=== PATIENT | male | born 1995 | race Caucasian/White ===

== ENCOUNTER 2019-03-08 20:54 | Emergency (ER) | payer BC ==
--- NOTE | 2019-03-08 21:15 | EDM.PDOC ---
ED HPI GENERAL MEDICAL PROBLEM - General Chief Complaint: Back Pain or Injury Stated Complaint: BACK PAIN Time Seen by Provider: 03/08/19 21:15 Source of Information: Reports: Patient - History of Present Illness INITIAL COMMENTS - FREE TEXT/NARRATIVE: HISTORY AND PHYSICAL: History of present illness: [Patient with 4 days of back pain increasing in severity, it began at work with a tight feeling in his low back the following day he was at the exercise gym to lift weights he states that he picked a rope up off of the floor have increased pain with bending and the left shortly after as he was unable to actually participate in the weightlifting Lying on his couch pain 5 out of 10 nonradiating worsened by movement better at rest No footdrop saddle anesthesia bowel or urine symptoms ] Review of systems: As per history of present illness and below otherwise all systems reviewed and negative. Past medical history: As per history of present illness and as reviewed below otherwise noncontributory. Surgical history: As per history of present illness and as reviewed below otherwise noncontributory. Social history: No reported history of drug or alcohol abuse. Family history: As per history of present illness and as reviewed below otherwise noncontributory. Physical exam: HEENT: Atraumatic, normocephalic, pupils reactive, negative for conjunctival pallor or scleral icterus, mucous membranes moist, throat clear, neck supple, nontender, trachea midline. Lungs: Clear to auscultation, breath sounds equal bilaterally, chest nontender. Heart: S1S2, regular, negative for clicks, rubs, or JVD. Abdomen: Soft, nondistended, nontender. Negative for masses or hepatosplenomegaly. Negative for costovertebral tenderness. Pelvis: Stable nontender. Genitourinary: Deferred. Rectal: Deferred. Extremities: Atraumatic, negative for cords or calf pain. Neurovascular unremarkable. Neuro: Awake, alert, oriented. Cranial nerves II through XII unremarkable. Cerebellum unremarkable. Motor and sensory unremarkable throughout. Exam nonfocal. Diagnostics: [Lumbar spine ] Therapeutics: [Toradol 60 IM ] Cataflam Flexeril ice/heat whichever gains most benefit Impression: []lum bar paraspinous muscle spasm Definitive disposition and diagnosis as appropriate pending reevaluation and review of above. low back Pain Score (Numeric/FACES): 5 - Related Data Allergies Allergy/AdvReac Type Severity Reaction Status Date / Time amoxicillin [From Augmentin] Allergy Airway Verified 03/08/19 21:22 Tightness clavulanic acid Allergy Airway Verified 03/08/19 21:22 [From Augmentin] Tightness Home Meds: Home Meds . [No Known Home Meds] 03/08/19 [History] Past Medical History - Past Surgical History HEENT Surgical History: Reports: Oral Surgery, Tonsillectomy Other HEENT Surgeries/Procedures: Marquez teeth removed- 2014 GI Surgical History: Reports: Appendectomy ED ROS GENERAL - Review of Systems Review Of Systems: See Below ED EXAM, GENERAL - Physical Exam Exam: See Below Course - Vital Signs Last Recorded V/S: Last Vital Signs Temp 97 F 03/08/19 21:10 Pulse 85 03/08/19 21:10 Resp 18 03/08/19 21:10 BP 129/78 03/08/19 21:10 Pulse Ox 96 03/08/19 21:10 - Orders/Labs/Meds Orders: Active Orders 24 hr Category Date Time Status Lumbar Spine 2 or 3V [CR] Stat Exams 03/08/19 21:18 Taken Meds: Medications Discontinued Medications Generic Name Dose Route Start Last Admin Trade Name Freq PRN Reason Stop Dose Admin Ketorolac Tromethamine 60 mg 03/08/19 21:20 03/08/19 21:33 Toradol IM 03/08/19 21:21 60 mg ONETIME ONE Administration Departure - Departure Time of Disposition: 21:59 Disposition: Home, Self-Care 01 Condition: Good Clinical Impression: Lumbar paraspinal muscle spasm - Discharge Information Referrals: PCP,None [Primary Care Provider] - Forms: ED Department Discharge Additional Instructions: Medication as prescribed Ice or heat 20 minute intervals 3 times daily each ever gains most benefit Return if symptoms persist or worsen Follow-up with primary care in 2 weeks sooner as needed [facility] - Primary [facility] [address] [place] [id number] The following information is given to patients seen in the emergency department who are being discharged to home. This information is to outline your options for follow-up care. We provide all patients seen in our emergency department with a follow-up referral. The need for follow-up, as well as the timing and circumstances, are variable depending upon the specifics of your emergency department visit. If you don't have a primary care physician on staff, we will provide you with a referral. We always advise you to contact your personal physician following an emergency department visit to inform them of the circumstance of the visit and for follow-up with them and/or the need for any referrals to a consulting specialist. The emergency department will also refer you to a specialist when appropriate. This referral assures that you have the opportunity for follow-up care with a specialist. All of these measure are taken in an effort to provide you with optimal care, which includes your follow-up. Under all circumstances we always encourage you to contact your private physician who remains a resource for coordinating your care. When calling for follow-up care, please make the office aware that this follow-up is from your recent emergency room visit. If for any reason you are refused follow-up, please contact the [facility] emergency department at and asked to speak to the emergency department charge nurse. - My Orders Last 24 Hours: My Active Orders 03/08/19 21:18 Lumbar Spine 2 or 3V [CR] Stat - Assessment/Plan Last 24 Hours: My Active Orders 03/08/19 21:18 Lumbar Spine 2 or 3V [CR] Stat
[2019-03-08] MEDS ORDERED: Ketorolac 60 MG/2 ML SDV IM ONE (21:20)
--- NOTE | 2019-03-08 22:35 | CR ---
INDICATION: Pain. No injury. COMPARISON: None. FINDINGS/IMPRESSION: Lumbar spine, 3 views. There is mild lumbar levoscoliosis and straightening of lumbar lordosis, possibly due to muscle spasm. No fractures are identified. No destructive lesions of bone are noted. No significant disc space narrowing is seen. Paraspinous soft tissues are within normal limits. Dictated by Mike Sharp MD @ 03/08/2019 10:35:05 PM Dictated by: Mike Sharp MD @ 03/08/2019 22:35:24 (Electronically Signed)
== END 2019-03-08 22:10 | disposition home or self-care (01) ==
LOC: MW.ED 20:54
DX: M62.830 Muscle spasm of back (principal); Z88.1 Allergy status to other antibiotic agents
CPT/HCPCS: 72100; 96372; 99283; J1885

== ENCOUNTER 2019-04-07 20:41 | Emergency (ER) | payer OTHER, BC ==
[2019-04-07] MEDS ORDERED: Ketorolac 60 MG/2 ML SDV IM ONE (21:01)
--- NOTE | 2019-04-07 21:06 | EDM.PDOC ---
ED HPI GENERAL MEDICAL PROBLEM - General Chief Complaint: Back Pain or Injury Stated Complaint: BACK INJURY Time Seen by Provider: 04/07/19 20:51 - History of Present Illness INITIAL COMMENTS - FREE TEXT/NARRATIVE: HISTORY AND PHYSICAL: History of present illness: The patient is a healthy 23-year-old male who presents with complaints of right upper lumbar back pain that started while at work today. The patient was seen here exactly one month ago on March 08 for lower back pain after having 4 or 5 days of pain and doing a lot of lifting at work. The patient had lumbar spine x-rays which I have reviewed which revealed no acute abnormalities except straightening of the lordosis of the lumbar spine secondary to spasm. He received Toradol and Flexeril and says that it improved gradually. He says that today he was doing similar activity such as lifting and he felt this acute pain which is worse with movements. He has no abdominal pain no shortness of breath no chest pain and no neurosensory changes or weakness in his extremities. He's had no bowel or bladder disturbances and he has tried [id number] Excedrin which is all they had at the work site. He says this is similar pain to what he had a month ago but it is just slightly higher. It is more on the right side. He 's had no hematuria dysuria or frequency Review of systems: As per history of present illness and below otherwise all systems reviewed and negative. Past medical history: As per history of present illness and as reviewed below otherwise noncontributory. Surgical history: As per history of present illness and as reviewed below otherwise noncontributory. Social history: No reported history of drug or alcohol abuse. Family history: As per history of present illness and as reviewed below otherwise noncontributory. Physical exam: General: Well-developed well-nourished man who is nontoxic and vital signs are noted by me. He looks uncomfortable with movements and prefers to sit very still. He did ambulate into the ED. HEENT: Atraumatic, normocephalic, negative for conjunctival pallor or scleral icterus, mucous membranes moist, throat clear, neck supple, nontender, trachea midline. Lungs: Clear to auscultation, breath sounds equal bilaterally, chest nontender. Heart: S1S2, regular in rhythm no overt murmurs Abdomen: Soft, nondistended, nontender. Negative for costovertebral tenderness. Pelvis: Stable nontender. Genitourinary: Deferred. Rectal: Deferred. Extremities: Atraumatic, negative for cords or calf pain. Neurovascular unremarkable. Full range of motion without deficits Neuro: Awake, alert, oriented. Cranial nerves II through XII unremarkable. Cerebellum unremarkable. Motor and sensory unremarkable throughout. Exam nonfocal. Dorsi and plantar flexion is intact 5/5 bilaterally inclusive of the great toe. Inversion and eversion of the feet is intact. Patellar reflexes are + 2 over 4 bilaterally Back: There are no midline step-offs in his defects of the thoracic lumbar spine no posterior rib or posterior pelvis tenderness. On palpation of the right paraspinal musculature at the upper lumbar area there is point reproducible discomfort on my exam. Diagnostics: Patient had lumbar spine x-rays 1 month ago which I reviewed Therapeutics: Toradol Norflex Impression: Acute back pain/muscle strain Definitive disposition and diagnosis as appropriate pending reevaluation and review of above. Middle Back Pain Score (Numeric/FACES): 4 - Related Data Allergies Allergy/AdvReac Type Severity Reaction Status Date / Time amoxicillin [From Augmentin] Allergy Airway Verified 04/07/19 20:54 Tightness clavulanic acid Allergy Airway Verified 04/07/19 20:54 [From Augmentin] Tightness Home Meds: Home Meds . [No Known Home Meds] 03/08/19 [History] Past Medical History - Past Health History Medical/Surgical History: Denies Medical/Surgical History - Past Surgical History HEENT Surgical History: Reports: Oral Surgery, Tonsillectomy Other HEENT Surgeries/Procedures: Kinney teeth removed- 2014 GI Surgical History: Reports: Appendectomy Social & Family History - Family History Family Medical History: Noncontributory - Tobacco Use Smoking Status *Q: Current Every Day Smoker Years of Tobacco use: 6 Packs/Tins Daily: 1 - Recreational Drug Use Recreational Drug Use: No ED ROS GENERAL - Review of Systems Review Of Systems: ROS reveals no pertinent complaints other than HPI. ED EXAM, GENERAL - Physical Exam Exam: See Below (See dictation) Course - Vital Signs Last Recorded V/S: Last Vital Signs Temp 36.6 C 04/07/19 20:51 Pulse 78 04/07/19 20:51 Resp 18 04/07/19 20:51 BP 119/78 04/07/19 20:51 Pulse Ox 98 04/07/19 20:51 - Orders/Labs/Meds Orders: Active Orders 24 hr Category Date Time Status Ketorolac [Toradol] Med 04/07/19 21:01 Once 60 mg IM ONETIME ONE Orphenadrine [Norflex] Med 04/07/19 21:01 Once 60 mg IM ONETIME ONE Departure - Departure Time of Disposition: 21:05 Disposition: Home, Self-Care 01 Condition: Fair Clinical Impression: Lumbar paraspinal muscle spasm - Discharge Information Referrals: PCP,None [Primary Care Provider] - Additional Instructions: The following information is given to patients seen in the emergency department who are being discharged to home. This information is to outline your options for follow-up care. We provide all patients seen in our emergency department with a follow-up referral. The need for follow-up, as well as the timing and circumstances, are variable depending upon the specifics of your emergency department visit. If you don't have a primary care physician on staff, we will provide you with a referral. We always advise you to contact your personal physician following an emergency department visit to inform them of the circumstance of the visit and for follow-up with them and/or the need for any referrals to a consulting specialist. The emergency department will also refer you to a specialist when appropriate. This referral assures that you have the opportunity for followup care with a specialist. All of these measure are taken in an effort to provide you with optimal care, which includes your followup. Under all circumstances we always encourage you to contact your private physician who remains a resource for coordinating your care. When calling for followup care, please make the office aware that this follow-up is from your recent emergency room visit. If for any reason you are refused follow-up, please contact the [facility] emergency department at and ask to speak to the emergency department charge nurse. [facility] Primary care- Internal Medicine and Family [address] [address] Use ice to area of your back for the next 24 hours and then switch to heat. Try to do stretching exercises after work as we discussed and also over the next few days to try to open up the area and loosen up the muscle spasm. Use medications as needed and prescribed and only take the stronger medication when you're home. Follow-up in the clinic for further care and evaluation and return to ER as needed and as discussed - My Orders Last 24 Hours: My Active Orders 04/07/19 21:01 Ketorolac [Toradol] 60 mg IM ONETIME ONE Orphenadrine [Norflex] 60 mg IM ONETIME ONE - Assessment/Plan Last 24 Hours: My Active Orders 04/07/19 21:01 Ketorolac [Toradol] 60 mg IM ONETIME ONE Orphenadrine [Norflex] 60 mg IM ONETIME ONE
== END 2019-04-07 21:45 | disposition home or self-care (01) ==
LOC: MW.ED 20:41
DX: S39.012A Strain of muscle, fascia and tendon of lower back, initial encounter (principal); F17.210 Nicotine dependence, cigarettes, uncomplicated; Z88.1 Allergy status to other antibiotic agents; X50.0XXA Overexertion from strenuous movement or load, initial encounter; Y99.0 Civilian activity done for income or pay
CPT/HCPCS: 96372; 99283; J1885; J2360